=== PATIENT | female | born 1990 | race African-American/Black ===

== ENCOUNTER 2016-08-26 10:32 | Outpatient (CLI) | payer MEDICAID ==
[2016-08-26 11:26] LABS: APPEARANCE,URINE SLIGHTLY-CLOUDY; BILIRUBIN,URINE NEGATIVE (NEGATIVE); GLUCOSE, URINE NEGATIVE (NEGATIVE); KETONES,URINE NEGATIVE (NEGATIVE); LEUKOCYTE ESTERASE,URINE NEGATIVE (NEGATIVE); NITRITE,URINE NEGATIVE (NEGATIVE); PROTEIN,URINE NEGATIVE (NEGATIVE); URINE SPECIFIC GRAVITY 1.013; UROBILINOGEN,URINE NEGATIVE mg/dL (<2.0)
[2016-08-26 11:36] LABS: URINE BARBITURATES SCREEN NEGATIVE; URINE METHADONE SCREEN NEGATIVE; URINE OPIATES LOW NEGATIVE; URINE PHENCYCLIDINE SCREEN NEGATIVE
--- NOTE | 2016-08-26 14:23 | Non Stress Test Report ---
Non Stress Test Datetime Report Generated by CPN: 08/26/2016 14:23 DEMOGRAPHIC EGA NST: 33.3 INDICATION Indication for Study: Other Indication for Study (NST) Other: Labor Check MONITORING Monitor Explained: Monitor Explained; Test Explained; Patient Verbalized Understanding Time on Monitor: 08/26/2016 10:54 Time off Monitor: 08/26/2016 13:10 NST Duration: 136 NST INTERVENTIONS NST Interventions: PO Hydration; Reposition Patient; For Biophysical Profile Physician Notified NST: DrDorene Bg BABY A: [id number] BABY A Movement : Present Contraction Frequency : 0 FHR Baseline : 130 Accelerations : 10X10 Variability : Moderate 6-25bpm NST Review: Questionable if Meets Criteria for Reactive NST NST Review and Verified By : HELENA Escalante Results: Questionable NST REPORT Report Trigger: Send Report
== END 2016-08-26 14:20 | disposition home or self-care (01) ==
LOC: LC 10:32
PROVIDERS: ATTEND Obstetrics & Gynecology
PROC: 4A1HXCZ Monitoring of Products of Conception, Cardiac Rate, External Approach (ICD-10-PCS; principal; 2016-08-26)
DX: Z34.93 Encounter for supervision of normal pregnancy, unspecified, third trimester (principal); Z36 Encounter for antenatal screening of mother; Z3A.33 33 weeks gestation of pregnancy; Z91.81 History of falling
CPT/HCPCS: 59025; 76819; 80307; 81005

== ENCOUNTER 2016-09-16 10:30 | Outpatient (CLI) | payer MEDICAID ==
[2016-09-16 11:11] LABS: APPEARANCE,URINE CLEAR; BILIRUBIN,URINE NEGATIVE (NEGATIVE); GLUCOSE, URINE NEGATIVE (NEGATIVE); KETONES,URINE NEGATIVE (NEGATIVE); LEUKOCYTE ESTERASE,URINE NEGATIVE (NEGATIVE); NITRITE,URINE NEGATIVE (NEGATIVE); PROTEIN,URINE NEGATIVE (NEGATIVE); URINE SPECIFIC GRAVITY 1.009; UROBILINOGEN,URINE NEGATIVE mg/dL (<2.0)
[2016-09-16 11:49] LABS: URINE BARBITURATES SCREEN NEGATIVE; URINE METHADONE SCREEN NEGATIVE; URINE OPIATES LOW NEGATIVE; URINE PHENCYCLIDINE SCREEN NEGATIVE
[2016-09-16 12:30] LABS: ABSOLUTE EOSINOPHILS # (AUTO) 0.1 10^3/uL (0.0-0.6); ABSOLUTE LYMPHOCYTES (AUTO) 2.3 10^3/uL (0.5-4.7); ABSOLUTE MONOCYTES (AUTO) 0.5 10^3/uL (0.1-1.4); ABSOLUTE NEUT (AUTO) 6.3 10^3/uL (1.7-8.2); BASOPHILS % (AUTO) 0.2 % (0-2); EOSINOPHILS % (AUTO) 0.7 % (0-6); HEMATOCRIT 32.8 % (36.0-47.0); HEMOGLOBIN 10.8 g/dL (12.0-15.5); HGB HCT DIFFERENCE -0.4; LYMPHOCYTES % (AUTO) 25.1 % (13-45); MEAN CORPUSCULAR HEMOGLOBIN 25.3 pg (27.0-33.4); MEAN CORPUSCULAR VOLUME 77 fl (80-97); MONOCYTES % (AUTO) 5.8 % (3-13); RED BLOOD COUNT 4.27 10^6/uL (3.72-5.28); RED CELL DISTRIBUTION WIDTH 14.2 % (11.5-14.0); SEGMENTED NEUTROPHILS % (AUTO) 68.2 % (42-78); WHITE BLOOD COUNT 9.3 10^3/uL (4.0-10.5)
[2016-09-16 12:46] LABS: ALANINE AMINOTRANSFERASE 22 U/L (9-52); ALBUMIN 3.3 g/dL (3.5-5.0); ALKALINE PHOSPHATASE 93 U/L (38-126); AMYLASE 66 U/L (30-110); ASPARTATE AMINO TRANSFERASE 13 U/L (14-36); BILIRUBIN,TOTAL 0.4 mg/dL (0.2-1.3); BLOOD UREA NITROGEN 8 mg/dL (7-20); CARBON DIOXIDE 24 mmol/L (22-30); CHLORIDE 106 mmol/L (98-107); CREATININE RESULT 0.61 mg/dL (0.52-1.25); GLUCOSE 83 mg/dL (75-110); LIPASE 50.1 U/L (23-300); POTASSIUM 3.9 mmol/L (3.6-5.0); TOTAL PROTEIN 6.2 g/dL (6.3-8.2)
[2016-09-16 12:50] LABS: ANION GAP 8 (5-19)
--- NOTE | 2016-09-16 13:47 | Non Stress Test Report ---
Non Stress Test Datetime Report Generated by CPN: 09/16/2016 13:46 DEMOGRAPHIC EGA NST: 36.3 INDICATION Indication for Study: Ordered by Provider MONITORING Monitor Explained: Monitor Explained; Test Explained; Patient Verbalized Understanding Time on Monitor: 09/16/2016 12:40 Time off Monitor: 09/16/2016 13:22 NST Duration: 42 NST INTERVENTIONS NST Interventions: PO Hydration Physician Notified NST: Dr. Baum BABY A: [id number] BABY A Movement : Present Contraction Frequency : Occasional FHR Baseline : 130 Accelerations : 15X15 Decelerations : None Variability : Moderate 6-25bpm NST Review: Meets Criteria for Reactive NST NST Review and Verified By : Juni Madrid RN NST Results: Reactive NST REPORT Report Trigger: Send Report
--- NOTE | 2016-09-16 16:51 | L&D Discharge Summary ---
OB Discharge Summary Datetime Report Generated by CPN: 09/16/2016 16:50 DISCHARGE DIAGNOSIS Diagnosis/Symptoms: False Labor Gestation: 36.2 Number of Babies in Womb: 1 Parity: 2 DIET/ACTIVITY/RESTRICTIONS Diet: Regular Activity: Normal Activity TEACHING/INSTRUCTIONS/REFERRALS Instructions Given To: Patient Instructions Understood: Patient Verbalized Understanding Referrals: None Educational Materials- Other: Kick counts reviewed. Pt instructed to return for worsening pain, N/V, fever. DISCHARGE INFORMATION Discharged AMA: No Discharge Date/Time: 09/16/2016 13:40 Discharged To: Home Discharge Provider Name: Dr. Baum Accompanied By: Mother Discharge Method: Ambulatory Condition: Stable FOLLOW UP INFORMATION Follow Up With: [facility] Follow Up On: As Scheduled Follow Up Phone Number: [facility] -
--- NOTE | 2016-09-20 22:48 | L&D General Admission ---
General Admit Datetime Report Generated by CPN: 09/20/2016 22:45 INFORMATION Patient Age: 25 (08/26/2016 10:32:QS system process) EDC: 10/11/2016 00:00 (08/26/2016 10:36:Mirna Madrid RN) : 5 (08/26/2016 10:36:Mirna Madrid RN) Para: 2 (08/26/2016 10:36:Mirna Madrid RN) Term: 2 (08/26/2016 10:36:Mirna Madrid RN) : 0 (08/26/2016 10:36:Mirna Madrid RN) Spontaneous Abortions: 0 (08/26/2016 10:36:Mirna Madrid RN) Induced Abortions: 0 (08/26/2016 10:36:Mirna Madrid RN) Livin (08/26/2016 10:36:Mirna Madrid RN) Cesareans: 0 (08/26/2016 10:36:Mirna Madrid RN) VBACs: 0 (08/26/2016 10:36:Mirna Madrid RN) Ectopic: 0 (08/26/2016 10:36:Mirna Madrid RN) Multiple Births: 0 (08/26/2016 10:36:Mirna Madrid RN) Baby, Number in Womb: 1 (08/26/2016 10:36:Mirna Madrid RN) CARE Primary Biological Science Technician[facility] (08/26/2016 10:36:Mirna Madrid RN) Adequate Care: Yes (08/26/2016 10:36:Mirna Madrid RN) Height (in): 65 (09/16/2016 11:51:QS system process) ALLERGIES Medication Allergy: No (08/26/2016 10:36:Mirna Madrid RN) Medication Allergies: No Known Allergies (03/07/2015) (08/26/2016 10:32:QS system process) Latex Allergy: No Latex Allergies (08/26/2016 10:36:Mirna Madrid RN) Food Allergies: none (08/26/2016 10:36:Mirna Madrid RN) Environmental Allergies: none (08/26/2016 10:36:Mirna Madrid RN) COMMUNICATION Primary Language: Qatari (08/26/2016 10:36:Mirna Madrid RN) Medical Tx Preferred Language: Qatari (08/26/2016 10:36:Mirna Madrid RN) Communication Barrier(s): None; Language barrier (08/26/2016 10:36:Mirna Madrid RN) DEMOGRAPHICS Address: [address] [place] [id number] (08/26/2016 10:32:QS system process) Zipcode: [address] (08/26/2016 10:32:QS system process) Home (08/26/2016 10:32:QS system process) SSN: [id number] (08/26/2016 10:32:QS system process) Next of Kin Name: TRINA SORTO (08/26/2016 10:32:QS system process) Next of Kin (08/26/2016 10:32:QS system process) Next of Kin Relationship: FA (08/26/2016 10:32:QS system process) Date of : 1990 (08/26/2016 10:32:QS system process) Marital Status: (08/26/2016 10:32:QS system process) Sex: Female (08/26/2016 10:32:QS system process) Race: (08/26/2016 10:32:QS system process) Ethnicity: Non- or (08/26/2016 10:32:QS system process) Church: Sabianism (08/26/2016 10:32:QS system process) DRUG AND ALCOHOL USE Alcohol: No (08/26/2016 10:36:Mirna Madrid RN) Cigarettes: Never Smoker. [id number] (08/26/2016 10:36:Mirna Madrid RN) Marijuana: No (08/26/2016 10:36:Mirna Madrid RN) Cocaine: No (08/26/2016 10:36:Mirna Madrid RN) Other Illicit Drugs: No (08/26/2016 10:36:Mirna Madrid RN) VACCINE HISTORY Influenza Vaccine: Yes (08/26/2016 10:36:Milagros Lynch RN) Tetanus Vaccine: No (08/26/2016 10:36:Milagros Lynch RN) Tdap Vaccine: No (08/26/2016 10:36:Milagros Lynch RN) Vp Ancillary: [facility] (08/26/2016 10:36:Milagros Lynch RN) Feeding Preference: Breast (08/26/2016 10:36:Milagros Lynch RN) Benefit of Breast Feed Discussed: Yes (08/26/2016 10:36:Milagros Lynch RN) Circumcision: N/A (08/26/2016 10:36:Milagros Lynch RN) Classes Attended: No (08/26/2016 10:36:Milagros Lynch RN) Tubal Ligation: Yes (08/26/2016 10:36:Milagros Lynch RN) Consent: N/A (08/26/2016 10:36:Milagros Lynch RN) Pain Management Plans: Natural (08/26/2016 10:36:Milagros Lynch RN) Plans for Labor and Delivery: None (08/26/2016 10:36:Milagros Lynch RN) Support Person: Nahid Dolan (08/26/2016 10:36:Milagros Lynch RN) Support Person Relationship: (08/26/2016 10:36:Milagros Lynch RN) Cultural/Spritual Practice: No (08/26/2016 10:36:Milagros Lynch RN) Spir/Cult Dietary Needs: No (08/26/2016 10:36:Milagros Lynch RN) LIVING SITUATION/DISCHARGE PLAN Living Arrangements: House (08/26/2016 10:36:Milagros Lynch RN) Adequate Access to:: Electric; Heat; Refrigeration; Plumbing/Running water; Phone; Transportation (08/26/2016 10:36:Milagros Lynch RN) WIC Program: No (08/26/2016 10:36:Milagros Lynch RN) Discharge Supervisor [place] Person: Nahid Dolan (08/26/2016 10:36:Milagros Lynch RN) Person to Help after Discharge: Nahid Dolan (08/26/2016 10:36:Milagros Lynch RN) Currently Using Commun Resources: Yes (08/26/2016 10:36:Milagros Lynch RN) Specify Current Resource Used: Medicaid (08/26/2016 10:36:Milagros Lynch RN) Outside Agency/Ticket Writer: N/A (08/26/2016 10:36:Milagros Lynch RN) Car Seat for Discharge: Yes (08/26/2016 10:36:Milagros Lynch RN) Adoption Requested: No (08/26/2016 10:36:Milagros Lynch RN) LABS Hemoglobin: 10.8 L (09/16/2016 12:05:QS system process) Hematocrit: 32.8 L (09/16/2016 12:05:QS system process) MCV: 77 L (09/16/2016 12:05:QS system process) OB/PREVIOUS HISTORY History of Previous : No (08/26/2016 10:36:Mirna Madrid RN) History of Gestational Diabetes: No (08/26/2016 10:36:Mirna Madrid RN) History of PIH: No (08/26/2016 10:36:Mirna Madrid RN) History of Incompetent Cervix: No (08/26/2016 10:36:Mirna Madrid RN) History of Placenta Previa/Abrup: No (08/26/2016 10:36:Mirna Madrid RN) History of Macrosomia: No (08/26/2016 10:36:Mirna Madrid RN) History of IUGR: No (08/26/2016 10:36:Mirna Madrid RN) History of Hemorrhage: No (08/26/2016 10:36:Mirna Madrid RN) History of Loss/Stillborn: No (08/26/2016 10:36:Mirna Madrid RN) History of : No (08/26/2016 10:36:Mirna Madrid RN) History of D (Rh) Sensitization: No (08/26/2016 10:36:Mirna Madrid RN) History Recurrent Loss/Stillborn: No (08/26/2016 10:36:Mrina Madrid RN) History Depression/PP Depression: No (08/26/2016 10:36:Mirna Madrid RN) History of Uterine Anomaly/MISHEL: No (08/26/2016 10:36:Mirna Madrid RN) History of Infertility: No (08/26/2016 10:36:Mirna Madrid RN) History of ART Treatment: No (08/26/2016 10:36:Mirna Madrid RN) History of MISHEL: No (08/26/2016 10:36:Mirna Madrid RN) Comments Obstetrical History: G1- Preeclampsia. full term female. G3- Misscarriage at 9 weeks. G4- full term male G5- Current . (08/26/2016 10:36:Milagros Lynch RN) MEDICAL HISTORY Med Hx Diabetes: No (08/26/2016 10:36:Mirna Madrid RN) Med Hx Hypertension: No (08/26/2016 10:36:Mirna Madrid RN) Med Hx Heart Disease: No (08/26/2016 10:36:Mirna Madrid RN) Med Hx Autoimmune Disorder: No (08/26/2016 10:36:Mirna Madrid RN) Med Hx Kidney Disease/UTI: No (08/26/2016 10:36:Mirna Madrid RN) Med Hx Neurologic/Epilepsy: No (08/26/2016 10:36:Mirna Madrid RN) Med Hx Psychiatric Disorders: No (08/26/2016 10:36:Mirna Madrid RN) Med Hx Hepatitis/Liver Disease: No (08/26/2016 10:36:Mirna Madrid RN) Med Hx Varicosities/Phlebitis: No (08/26/2016 10:36:Mirna Madrid RN) Med Hx Thyroid Dysfunction: No (08/26/2016 10:36:Mirna Madrid RN) Med Hx Trauma/Violence: No (08/26/2016 10:36:Mirna Madrid RN) Med Hx Blood Transfusion: No (08/26/2016 10:36:Mirna Madrid RN) Med Hx Pulmonary (Asthma,TB): No (08/26/2016 10:36:Mirna Madrid RN) Med Hx Breast: No (08/26/2016 10:36:Mirna Madrid RN) Med Hx PROGRAMMING DEVELOPMENT PROJECT MANAGER Surgery: No (08/26/2016 10:36:Mirna Madrid RN) Med Hx Hospitalization/Surgery: Yes (08/26/2016 10:36:Milagros Lynch RN) Med Hx Anesthetic Complications: No (08/26/2016 10:36:Mirna Madrid RN) Med Hx Abnormal Pap Smear: No (08/26/2016 10:36:Mirna Madrid RN) Other Medical Diseases: No (08/26/2016 10:36:Mirna Madrid RN) Med Hx Significant Family Hx: No (08/26/2016 10:36:Mirna Madrid RN) Details of Med/Surg Hx: Preeclampsia during first (08/26/2016 10:36:Milagros Lynch RN) INFECTIOUS HISTORY Inf Hx Gonorrhea: No (08/26/2016 10:36:Mirna Madrid RN) Inf Hx Chlamydia: No (08/26/2016 10:36:Mirna Madrid RN) Inf Hx Syphilis: No (08/26/2016 10:36:Mirna Madrid RN) Inf Hx HIV/AIDS: No (08/26/2016 10:36:Mirna Madrid RN) Inf Hx Human Papilloma Virus: No (08/26/2016 10:36:Mirna Madrid RN) Inf Hx Pt/Partner Genital Herpes: No (08/26/2016 10:36:Mirna Madrid RN) Inf Hx Tuberculosis/Exposure: No (08/26/2016 10:36:Mirna Madrid RN) Inf Hx Hepatitis B,C: No (08/26/2016 10:36:Mirna Madrid RN) Inf Hx Rash or Viral Illness: No (08/26/2016 10:36:Mirna Madrid RN) GENETIC HISTORY Gen Hx Age >=35 at AN[place]EL[place]: No (08/26/2016 10:36:Mirna Madrid RN) Gen Hx Thalassemia: No (08/26/2016 10:36:Mirna Madrid RN) Gen Hx Congenital Heart Defect: No (08/26/2016 10:36:Mirna Madrid RN) Gen Hx Neural Tube Defect: No (08/26/2016 10:36:Mirna Madrid RN) Gen Hx Down's Syndrome: No (08/26/2016 10:36:Mirna Madrid RN) Gen Hx Wild-Sachs: No (08/26/2016 10:36:Mirna Madrid RN) Gen Hx Jose L: No (08/26/2016 10:36:Mirna Madrid RN) Gen Hx Familial Dysautonomia: No (08/26/2016 10:36:Mirna Madrid RN) Gen Hx Sickle Cell Disease/Trait: No (08/26/2016 10:36:Mirna Madrid RN) Gen Hx Hemophilia/Blood Disorder: No (08/26/2016 10:36:Mirna Madrid RN) Gen Hx Muscular Dystrophy: No (08/26/2016 10:36:Mirna Madrid RN) Gen Hx Cystic Fibrosis: No (08/26/2016 10:36:Mirna Madrid RN) Gen Hx Huntingtons Chorea: No (08/26/2016 10:36:Mirna Madrid RN) Gen Hx Mental Retardation/Autism: No (08/26/2016 10:36:Mirna Madrid RN) Gen Hx Tested for Fragile X: No (08/26/2016 10:36:Mirna Madrid RN) Gen Hx Other Inher/Chromosomal: No (08/26/2016 10:36:Mirna Madrid RN) Gen Hx Maternal Metabolic DO: No (08/26/2016 10:36:Mirna Madrid RN) Gen Hx Pt Father or FOB Defect: No (08/26/2016 10:36:Mirna Madrid RN) Gen Hx Other Genetic History: No (08/26/2016 10:36:Mirna Madrid RN) Gen Hx Drugs/Meds since LMP: No (08/26/2016 10:36:Mirna Madrid RN)
--- NOTE | 2016-09-20 22:48 | L&D Current Admission ---
Current Admit Datetime Report Generated by CPN: 09/20/2016 22:45 ADMISSION INFORMATION Current Admit Date/Time: 09/16/2016 10:36 (08/26/2016 10:59:Milagros Lynch RN) Reason for Admission: Labor Check/Investigation of Chief Complaint (08/26/2016 10:59:Milagros Lynch RN) Chief Complaint: Contractions (09/16/2016 11:05:Milagros Lynch RN) Chief Complaint: Contractions (08/26/2016 10:59:Milagros Lynch RN) Medications During : Vitamin (08/26/2016 10:59:Milagros Lynch RN) EGA per Dates: 36.3 (08/26/2016 10:59:QS system process) Method of Arrival: Wheelchair (08/26/2016 10:59:Milagros Lynch RN) Admitted From: Home (08/26/2016 10:59:Milagros Lynch RN) Records Available: Yes (08/26/2016 10:59:Milagros Lynch RN) General Admission Information: Reviewed (08/26/2016 10:59:Milagros Lynch RN) General Admission Reviewed By: Leandra Lynch (08/26/2016 10:59:Milagros Lynch RN) BELONGINGS/ADVANCED DIRECTIVES Valuables/Personal Effects: Purse/Wallet; Cell Phone (08/26/2016 10:59:Milagros Lynch RN) Disposition of Belongings: Kept with Patient (08/26/2016 10:59:Milagros Lynch RN) Advance Direct for Healthcare: No, but Requests Information (08/26/2016 10:59:Milagros Lynch RN) Durable Power of Furniture Rental Consultant: No (08/26/2016 10:59:Milagros Lynch RN) Living Will: No (08/26/2016 10:59:Milagros Lynch RN) Organ Donor: No (08/26/2016 10:59:Milagros Lynch RN) Pt Rights Information Given: Yes (08/26/2016 10:59:Milagros Lynch RN) LEARNING ASSESSMENT Knowledge Level: Understands L_D Process (08/26/2016 10:59:Milagros Lynch RN) Barriers to Learning: None (08/26/2016 10:59:Milagros Lynch RN) Learning Readiness: Motivated (08/26/2016 10:59:Milagros Lynch RN) Learns Best By: 1 to 1 Instruction; Reading; Videos; Demonstration (08/26/2016 10:59:Milagros Lynch RN) Learning Needs: Labor and Delivery Process; Pain Management; Symptoms to Report; Medication (08/26/2016 10:59:Milagros Lynch RN) DOMESTIC VIOLANCE SCREENING Dom Viol Threatened/Hurt: No (08/26/2016 10:59:Milagros Lynch RN) Hx of Abuse/Neglect past 2yrs: No (08/26/2016 10:59:Milagros Lynch RN) Feel Unsafe Going Home: No (08/26/2016 10:59:Milagros Lynch RN) Addt'l Observ Indicating Abuse: No (08/26/2016 10:59:Milagros Lynch RN) Considered Personal Harm/Suicide: No (08/26/2016 10:59:Milagros Lynch RN) NUTRITIONAL/FUNCTIONAL SCREENING Problem with Appetite >5 Days: No (08/26/2016 10:59:Milagros Lynch RN) Chew/Swallow Difficulties: No (08/26/2016 10:59:Mliagros Lynch RN) Inappropriate Wt Gain/Loss: No (08/26/2016 10:59:Milagros Lynch RN) Presence Skin Breakdown/Ulcer: No (08/26/2016 10:59:Milagros Lynch RN) Special Diet: No (08/26/2016 10:59:Milagros Lynch RN) Hx of Any of the Following?: N/A (08/26/2016 10:59:Milagros Lynch RN) New Diagnosis of: N/A (08/26/2016 10:59:Milagros Lynch RN) Requires Assist w/Ambulation: No (08/26/2016 10:59:Milagros Lynch RN) Uses Assist Device to Ambulate: No (08/26/2016 10:59:Milagros Lynch RN) Pt Requires Help w/ADL's: No (08/26/2016 10:59:Milagros Lynch RN)
--- NOTE | 2016-09-20 22:49 | L&D Discharge Summary ---
OB Discharge Summary Datetime Report Generated by CPN: 09/20/2016 22:45 DISCHARGE DIAGNOSIS Diagnosis/Symptoms: False Labor Gestation: 36.3 Number of Babies in Womb: 1 Parity: 2 DIET/ACTIVITY/RESTRICTIONS Diet: Regular Activity: Normal Activity TEACHING/INSTRUCTIONS/REFERRALS Instructions Given To: Patient Instructions Understood: Patient Verbalized Understanding Referrals: None Educational Materials- Other: Kick counts reviewed. Pt instructed to return for worsening pain, N/V, fever. DISCHARGE INFORMATION Discharged AMA: No Discharge Date/Time: 09/16/2016 13:40 Discharged To: Home Discharge Provider Name: Dr. Baum Accompanied By: Mother Discharge Method: Ambulatory Condition: Stable FOLLOW UP INFORMATION Follow Up With: [facility] Follow Up On: As Scheduled Follow Up Phone Number: [facility] -
--- NOTE | 2016-09-21 04:48 | L&D Discharge Summary ---
OB Discharge Summary Datetime Report Generated by CPN: 09/21/2016 04:46 DISCHARGE DIAGNOSIS Diagnosis/Symptoms: False Labor Gestation: 36.3 Number of Babies in Womb: 1 Parity: 2 DIET/ACTIVITY/RESTRICTIONS Diet: Regular Activity: Normal Activity TEACHING/INSTRUCTIONS/REFERRALS Instructions Given To: Patient Instructions Understood: Patient Verbalized Understanding Referrals: None Educational Materials- Other: Kick counts reviewed. Pt instructed to return for worsening pain, N/V, fever. DISCHARGE INFORMATION Discharged AMA: No Discharge Date/Time: 09/16/2016 13:40 Discharged To: Home Discharge Provider Name: Dr. Baum Accompanied By: Mother Discharge Method: Ambulatory Condition: Stable FOLLOW UP INFORMATION Follow Up With: [facility] Follow Up On: As Scheduled Follow Up Phone Number: [facility] -
--- NOTE | 2016-09-21 04:48 | L&D General Admission ---
General Admit Datetime Report Generated by CPN: 09/21/2016 04:46 INFORMATION Patient Age: 25 (08/26/2016 10:32:QS system process) EDC: 10/11/2016 00:00 (08/26/2016 10:36:Mirna Madrid RN) : 5 (08/26/2016 10:36:Mirna Madrid RN) Para: 2 (08/26/2016 10:36:Mirna Madrid RN) Term: 2 (08/26/2016 10:36:Mirna Madrid RN) : 0 (08/26/2016 10:36:Mirna Madrid RN) Spontaneous Abortions: 0 (08/26/2016 10:36:Mirna Madrid RN) Induced Abortions: 0 (08/26/2016 10:36:Mirna Madrid RN) Livin (08/26/2016 10:36:Mirna Madrid RN) Cesareans: 0 (08/26/2016 10:36:Mirna Madrid RN) VBACs: 0 (08/26/2016 10:36:Mirna Madrid RN) Ectopic: 0 (08/26/2016 10:36:Mirna Madrid RN) Multiple Births: 0 (08/26/2016 10:36:Mirna Madrid RN) Baby, Number in Womb: 1 (08/26/2016 10:36:Mirna Madrid RN) CARE Primary Hand Compositor: [facility] (08/26/2016 10:36:Mirna Madrid RN) Adequate Care: Yes (08/26/2016 10:36:Mirna Madrid RN) Height (in): 65 (09/16/2016 11:51:QS system process) ALLERGIES Medication Allergy: No (08/26/2016 10:36:Mirna Madrid RN) Medication Allergies: No Known Allergies (03/07/2015) (08/26/2016 10:32:QS system process) Latex Allergy: No Latex Allergies (08/26/2016 10:36:Mirna Madrid RN) Food Allergies: none (08/26/2016 10:36:Mirna Madrid RN) Environmental Allergies: none (08/26/2016 10:36:Mirna Madrid RN) COMMUNICATION Primary Language: Syrian (08/26/2016 10:36:Mirna Madrid RN) Medical Tx Preferred Language: Syrian (08/26/2016 10:36:Mirna Madrid RN) Communication Barrier(s): None; Language barrier (08/26/2016 10:36:Mirna Madrid RN) DEMOGRAPHICS Address: [address] [place] [id number] (08/26/2016 10:32:QS system process) Zipcode: [address] (08/26/2016 10:32:QS system process) Home (08/26/2016 10:32:QS system process) SSN: [id number] (08/26/2016 10:32:QS system process) Next of Kin Name: TRINA SORTO (08/26/2016 10:32:QS system process) Next of Kin (08/26/2016 10:32:QS system process) Next of Kin Relationship: FA (08/26/2016 10:32:QS system process) Date of : 1990 (08/26/2016 10:32:QS system process) Marital Status: (08/26/2016 10:32:QS system process) Sex: Female (08/26/2016 10:32:QS system process) Race: (08/26/2016 10:32:QS system process) Ethnicity: Non- or (08/26/2016 10:32:QS system process) Druze: Yarsani (08/26/2016 10:32:QS system process) DRUG AND ALCOHOL USE Alcohol: No (08/26/2016 10:36:Mirna Madrid RN) Cigarettes: Never Smoker. [id number] (08/26/2016 10:36:Mirna Madrid RN) Marijuana: No (08/26/2016 10:36:Mirna Madrid RN) Cocaine: No (08/26/2016 10:36:Mirna Madrid RN) Other Illicit Drugs: No (08/26/2016 10:36:Mirna Madrid RN) VACCINE HISTORY Influenza Vaccine: Yes (08/26/2016 10:36:Milagros Lynch RN) Tetanus Vaccine: No (08/26/2016 10:36:Milagros Lynch RN) Tdap Vaccine: No (08/26/2016 10:36:Milagros Lynch RN) Drawer Maker: [facility] (08/26/2016 10:36:Milagros Lynch RN) Feeding Preference: Breast (08/26/2016 10:36:Milgaros Lynch RN) Benefit of Breast Feed Discussed: Yes (08/26/2016 10:36:Milagros Lynch RN) Circumcision: N/A (08/26/2016 10:36:Milagros Lynch RN) Classes Attended: No (08/26/2016 10:36:Milagros Lynch RN) Tubal Ligation: Yes (08/26/2016 10:36:Milagros Lynch RN) Consent: N/A (08/26/2016 10:36:Milagros Lynch RN) Pain Management Plans: Natural (08/26/2016 10:36:Milagros Lynch RN) Plans for Labor and Delivery: None (08/26/2016 10:36:Milagros Lynch RN) Support Person: Nahid Dolan (08/26/2016 10:36:Milagros Lynch RN) Support Person Relationship: (08/26/2016 10:36:Milagros Lynch RN) Cultural/Spritual Practice: No (08/26/2016 10:36:Milagros Lynch RN) Spir/Cult Dietary Needs: No (08/26/2016 10:36:Milagros Lynch RN) LIVING SITUATION/DISCHARGE PLAN Living Arrangements: House (08/26/2016 10:36:Milagros Lynch RN) Adequate Access to:: Electric; Heat; Refrigeration; Plumbing/Running water; Phone; Transportation (08/26/2016 10:36:Milagros Lynch RN) WIC Program: No (08/26/2016 10:36:Milagros Lynch RN) Discharge Lastex Operator Person: Nahid Dolan (08/26/2016 10:36:Milagros Lynch RN) Person to Help after Discharge: Nahid Dolan (08/26/2016 10:36:Milagros Lynch RN) Currently Using Commun Resources: Yes (08/26/2016 10:36:Milagros Lynch RN) Specify Current Resource Used: Medicaid (08/26/2016 10:36:Milagros Lynch RN) Outside Agency/Hollow Ware Maker: N/A (08/26/2016 10:36:Milagros Lynch RN) Car Seat for Discharge: Yes (08/26/2016 10:36:Milagros Lynch RN) Adoption Requested: No (08/26/2016 10:36:Milagros Lynch RN) LABS Hemoglobin: 10.8 L (09/16/2016 12:05:QS system process) Hematocrit: 32.8 L (09/16/2016 12:05:QS system process) MCV: 77 L (09/16/2016 12:05:QS system process) OB/PREVIOUS HISTORY History of Previous : No (08/26/2016 10:36:Mirna Madrid RN) History of Gestational Diabetes: No (08/26/2016 10:36:Mirna Madrid RN) History of PIH: No (08/26/2016 10:36:Mirna Madrid RN) History of Incompetent Cervix: No (08/26/2016 10:36:Mirna Madrid RN) History of Placenta Previa/Abrup: No (08/26/2016 10:36:Mirna Madrid RN) History of Macrosomia: No (08/26/2016 10:36:Mirna Madrid RN) History of IUGR: No (08/26/2016 10:36:Mirna Madrid RN) History of Hemorrhage: No (08/26/2016 10:36:Mirna Madrid RN) History of Loss/Stillborn: No (08/26/2016 10:36:Mirna Madrid RN) History of : No (08/26/2016 10:36:Mirna Madrid RN) History of D (Rh) Sensitization: No (08/26/2016 10:36:Mirna Madrid RN) History Recurrent Loss/Stillborn: No (08/26/2016 10:36:Mirna Madrid RN) History Depression/PP Depression: No (08/26/2016 10:36:Mirna Madrid RN) History of Uterine Anomaly/MISHEL: No (08/26/2016 10:36:Mirna Madrid RN) History of Infertility: No (08/26/2016 10:36:Mirna Madrid RN) History of ART Treatment: No (08/26/2016 10:36:Mirna Madrid RN) History of MISHEL: No (08/26/2016 10:36:Mirna Madrid RN) Comments Obstetrical History: G1- Preeclampsia. full term female. G3- Misscarriage at 9 weeks. G4- full term male G5- Current . (08/26/2016 10:36:Milagros Lynch RN) MEDICAL HISTORY Med Hx Diabetes: No (08/26/2016 10:36:Mirna Madrid RN) Med Hx Hypertension: No (08/26/2016 10:36:Mirna Madrid RN) Med Hx Heart Disease: No (08/26/2016 10:36:Mirna Madrid RN) Med Hx Autoimmune Disorder: No (08/26/2016 10:36:Mirna Madrid RN) Med Hx Kidney Disease/UTI: No (08/26/2016 10:36:Mirna Madrid RN) Med Hx Neurologic/Epilepsy: No (08/26/2016 10:36:Mirna Madrid RN) Med Hx Psychiatric Disorders: No (08/26/2016 10:36:Mirna Madrid RN) Med Hx Hepatitis/Liver Disease: No (08/26/2016 10:36:Mirna Madrid RN) Med Hx Varicosities/Phlebitis: No (08/26/2016 10:36:Mirna Madrid RN) Med Hx Thyroid Dysfunction: No (08/26/2016 10:36:Mirna Madrid RN) Med Hx Trauma/Violence: No (08/26/2016 10:36:Mirna Madrid RN) Med Hx Blood Transfusion: No (08/26/2016 10:36:Mirna Madrid RN) Med Hx Pulmonary (Asthma,TB): No (08/26/2016 10:36:Mirna Madrid RN) Med Hx Breast: No (08/26/2016 10:36:Mirna Madrid RN) Med Hx DIGITAL PRINTER OPERATOR Surgery: No (08/26/2016 10:36:Mirna Madrid RN) Med Hx Hospitalization/Surgery: Yes (08/26/2016 10:36:Milagros Lynch RN) Med Hx Anesthetic Complications: No (08/26/2016 10:36:Mirna Madrid RN) Med Hx Abnormal Pap Smear: No (08/26/2016 10:36:Mirna Madrid RN) Other Medical Diseases: No (08/26/2016 10:36:Mirna Madrid RN) Med Hx Significant Family Hx: No (08/26/2016 10:36:Mirna Madrid RN) Details of Med/Surg Hx: Preeclampsia during first (08/26/2016 10:36:Milagros Lynch RN) INFECTIOUS HISTORY Inf Hx Gonorrhea: No (08/26/2016 10:36:Mirna Madrid RN) Inf Hx Chlamydia: No (08/26/2016 10:36:Mirna Madrid RN) Inf Hx Syphilis: No (08/26/2016 10:36:Mirna Madrid RN) Inf Hx HIV/AIDS: No (08/26/2016 10:36:Mirna Madrid RN) Inf Hx Human Papilloma Virus: No (08/26/2016 10:36:Mirna Madrid RN) Inf Hx Pt/Partner Genital Herpes: No (08/26/2016 10:36:Mirna Madrid RN) Inf Hx Tuberculosis/Exposure: No (08/26/2016 10:36:Mirna Madrid RN) Inf Hx Hepatitis B,C: No (08/26/2016 10:36:Mirna Madrid RN) Inf Hx Rash or Viral Illness: No (08/26/2016 10:36:Mirna Madrid RN) GENETIC HISTORY Gen Hx Age >=35 at ANNABELLE: No (08/26/2016 10:36:Mirna Madrid RN) Gen Hx Thalassemia: No (08/26/2016 10:36:Mirna Madrid RN) Gen Hx Congenital Heart Defect: No (08/26/2016 10:36:Mirna Madrid RN) Gen Hx Neural Tube Defect: No (08/26/2016 10:36:Mirna Madrid RN) Gen Hx Down's Syndrome: No (08/26/2016 10:36:Mirna Madrid RN) Gen Hx Wild-Sachs: No (08/26/2016 10:36:Mirna Madrid RN) Gen Hx Jose L: No (08/26/2016 10:36:Mirna Madrid RN) Gen Hx Familial Dysautonomia: No (08/26/2016 10:36:Mirna Madrid RN) Gen Hx Sickle Cell Disease/Trait: No (08/26/2016 10:36:Mirna Madrid RN) Gen Hx Hemophilia/Blood Disorder: No (08/26/2016 10:36:Mirna Madrid RN) Gen Hx Muscular Dystrophy: No (08/26/2016 10:36:Mirna Madrid RN) Gen Hx Cystic Fibrosis: No (08/26/2016 10:36:Mirna Madrid RN) Gen Hx [place] Chorea: No (08/26/2016 10:36:Mirna Madrid RN) Gen Hx Mental Retardation/Autism: No (08/26/2016 10:36:Mirna Madrid RN) Gen Hx Tested for Fragile X: No (08/26/2016 10:36:Mirna Madrid RN) Gen Hx Other Inher/Chromosomal: No (08/26/2016 10:36:Mirna Madrid RN) Gen Hx Maternal Metabolic DO: No (08/26/2016 10:36:Mirna Madrid RN) Gen Hx Pt Father or FOB Defect: No (08/26/2016 10:36:Mirna Madrid RN) Gen Hx Other Genetic History: No (08/26/2016 10:36:Mirna Madrid RN) Gen Hx Drugs/Meds since LMP: No (08/26/2016 10:36:Mirna Madrid RN)
--- NOTE | 2016-09-21 04:48 | L&D Current Admission ---
Current Admit Datetime Report Generated by CPN: 09/21/2016 04:46 ADMISSION INFORMATION Current Admit Date/Time: 09/16/2016 10:36 (08/26/2016 10:59:Milagros Lynch RN) Reason for Admission: Labor Check/Investigation of Chief Complaint (08/26/2016 10:59:Milagros Lynch RN) Chief Complaint: Contractions (09/16/2016 11:05:Milagros Lynch RN) Chief Complaint: Contractions (08/26/2016 10:59:Milagros Lynch RN) Medications During : Vitamin (08/26/2016 10:59:Milagros Lynch RN) EGA per Dates: 36.3 (08/26/2016 10:59:QS system process) Method of Arrival: Wheelchair (08/26/2016 10:59:Milagros Lynch RN) Admitted From: Home (08/26/2016 10:59:Milagros Lynch RN) Records Available: Yes (08/26/2016 10:59:Milagros Lynch RN) General Admission Information: Reviewed (08/26/2016 10:59:Milagros Lynch RN) General Admission Reviewed By: Leandra Lynch (08/26/2016 10:59:Milagros Lynch RN) BELONGINGS/ADVANCED DIRECTIVES Valuables/Personal Effects: Purse/Wallet; Cell Phone (08/26/2016 10:59:Milagros Lynch RN) Disposition of Belongings: Kept with Patient (08/26/2016 10:59:Milagros Lynch RN) Advance Direct for Healthcare: No, but Requests Information (08/26/2016 10:59:Milagros Lynch RN) Durable Power of Emergency Communications Dispatcher: No (08/26/2016 10:59:Milagros Lynch RN) Living Will: No (08/26/2016 10:59:Milagros Lynch RN) Organ Donor: No (08/26/2016 10:59:Milagros Lynch RN) Pt Rights Information Given: Yes (08/26/2016 10:59:Milagros Lynch RN) LEARNING ASSESSMENT Knowledge Level: Understands L_D Process (08/26/2016 10:59:Milagros Lynch RN) Barriers to Learning: None (08/26/2016 10:59:Milagros Lynch RN) Learning Readiness: Motivated (08/26/2016 10:59:Milagros Lynch RN) Learns Best By: 1 to 1 Instruction; Reading; Videos; Demonstration (08/26/2016 10:59:Milagros Lynch RN) Learning Needs: Labor and Delivery Process; Pain Management; Symptoms to Report; Medication (08/26/2016 10:59:Milagros Lynhc RN) DOMESTIC VIOLANCE SCREENING Dom Viol Threatened/Hurt: No (08/26/2016 10:59:Milagros Lynch RN) Hx of Abuse/Neglect past 2yrs: No (08/26/2016 10:59:Milagros Lynch RN) Feel Unsafe Going Home: No (08/26/2016 10:59:Milagros Lynch RN) Addt'l Observ Indicating Abuse: No (08/26/2016 10:59:Milagros Lynch RN) Considered Personal Harm/Suicide: No (08/26/2016 10:59:Milagros Lynch RN) NUTRITIONAL/FUNCTIONAL SCREENING Problem with Appetite >5 Days: No (08/26/2016 10:59:Milagros Lynch RN) Chew/Swallow Difficulties: No (08/26/2016 10:59:Milagros Lynch RN) Inappropriate Wt Gain/Loss: No (08/26/2016 10:59:Milagros Lynch RN) Presence Skin Breakdown/Ulcer: No (08/26/2016 10:59:Milagros Lynch RN) Special Diet: No (08/26/2016 10:59:Milagros Lynch RN) Hx of Any of the Following?: N/A (08/26/2016 10:59:Milagros Lynch RN) New Diagnosis of: N/A (08/26/2016 10:59:Milagros Lynch RN) Requires Assist w/Ambulation: No (08/26/2016 10:59:Milagros Lynch RN) Uses Assist Device to Ambulate: No (08/26/2016 10:59:Milagros Lynch RN) Pt Requires Help w/ADL's: No (08/26/2016 10:59:Milagros Lynch RN)
--- NOTE | 2016-09-21 10:48 | L&D General Admission ---
General Admit Datetime Report Generated by CPN: 09/21/2016 10:45 INFORMATION Patient Age: 25 (08/26/2016 10:32:QS system process) EDC: 10/11/2016 00:00 (08/26/2016 10:36:Mirna Madrid RN) : 5 (08/26/2016 10:36:Mirna Madrid RN) Para: 2 (08/26/2016 10:36:Mirna Madrid RN) Term: 2 (08/26/2016 10:36:Mirna Madrid RN) : 0 (08/26/2016 10:36:Mirna Madrid RN) Spontaneous Abortions: 0 (08/26/2016 10:36:Mirna Madrid RN) Induced Abortions: 0 (08/26/2016 10:36:Mirna Madrid RN) Livin (08/26/2016 10:36:Mirna Madrid RN) Cesareans: 0 (08/26/2016 10:36:Mirna Madrid RN) VBACs: 0 (08/26/2016 10:36:Mirna Madrid RN) Ectopic: 0 (08/26/2016 10:36:Mirna Madrid RN) Multiple Births: 0 (08/26/2016 10:36:Mirna Madrid RN) Baby, Number in Womb: 1 (08/26/2016 10:36:Mirna Madrid RN) CARE Primary Block Setter [place] (08/26/2016 10:36:Mirna Madrid RN) Adequate Care: Yes (08/26/2016 10:36:Mirna Madrid RN) Height (in): 65 (09/16/2016 11:51:QS system process) ALLERGIES Medication Allergy: No (08/26/2016 10:36:Mirna Madrid RN) Medication Allergies: No Known Allergies (03/07/2015) (08/26/2016 10:32:QS system process) Latex Allergy: No Latex Allergies (08/26/2016 10:36:Mirna Madrid RN) Food Allergies: none (08/26/2016 10:36:Mirna Madrid RN) Environmental Allergies: none (08/26/2016 10:36:Mirna Madrid RN) COMMUNICATION Primary Language: Senegalese (08/26/2016 10:36:Mirna Madrid RN) Medical Tx Preferred Language: Senegalese (08/26/2016 10:36:Mirna Madrid RN) Communication Barrier(s): None; Language barrier (08/26/2016 10:36:Mirna Madrid RN) DEMOGRAPHICS Address: [address] [place] [id number] (08/26/2016 10:32:QS system process) Zipcode: [id number] (08/26/2016 10:32:QS system process) Home (08/26/2016 10:32:QS system process) SSN: [id number] (08/26/2016 10:32:QS system process) Next of Kin Name: TRINA SORTO (08/26/2016 10:32:QS system process) Next of Kin (08/26/2016 10:32:QS system process) Next of Kin Relationship: FA (08/26/2016 10:32:QS system process) Date of : 1990 (08/26/2016 10:32:QS system process) Marital Status: (08/26/2016 10:32:QS system process) Sex: Female (08/26/2016 10:32:QS system process) Race: (08/26/2016 10:32:QS system process) Ethnicity: Non- or (08/26/2016 10:32:QS system process) Congregation: Moravian (08/26/2016 10:32:QS system process) DRUG AND ALCOHOL USE Alcohol: No (08/26/2016 10:36:Mirna Madrid RN) Cigarettes: Never Smoker. [id number] (08/26/2016 10:36:Mirna Madrid RN) Marijuana: No (08/26/2016 10:36:Mirna Madrid RN) Cocaine: No (08/26/2016 10:36:Mirna Madrid RN) Other Illicit Drugs: No (08/26/2016 10:36:Mirna Madrid RN) VACCINE HISTORY Influenza Vaccine: Yes (08/26/2016 10:36:Milagros Lynch RN) Tetanus Vaccine: No (08/26/2016 10:36:Milagros Lynch RN) Tdap Vaccine: No (08/26/2016 10:36:Milagros Lynch RN) Student Career Development Specialist: [employer] (08/26/2016 10:36:Milagros Lynch RN) Feeding Preference: Breast (08/26/2016 10:36:Milagros Lynch RN) Benefit of Breast Feed Discussed: Yes (08/26/2016 10:36:Milagros Lynch RN) Circumcision: N/A (08/26/2016 10:36:Milagros Lynch RN) Classes Attended: No (08/26/2016 10:36:Milagros Lynch RN) Tubal Ligation: Yes (08/26/2016 10:36:Milagros Lynch RN) Consent: N/A (08/26/2016 10:36:Milagros Lynch RN) Pain Management Plans: Natural (08/26/2016 10:36:Milagros Lynch RN) Plans for Labor and Delivery: None (08/26/2016 10:36:Milagros Lynch RN) Support Person: Nahid Dolan (08/26/2016 10:36:Milagros Lynch RN) Support Person Relationship: (08/26/2016 10:36:Milagros Lynch RN) Cultural/Spritual Practice: No (08/26/2016 10:36:Milagros Lynch RN) Spir/Cult Dietary Needs: No (08/26/2016 10:36:Milagros Lynch RN) LIVING SITUATION/DISCHARGE PLAN Living Arrangements: House (08/26/2016 10:36:Milagros Lynch RN) Adequate Access to:: Electric; Heat; Refrigeration; Plumbing/Running water; Phone; Transportation (08/26/2016 10:36:Milagros Lynch RN) WIC Program: No (08/26/2016 10:36:Milagros Lynch RN) Discharge Nursing Education Consultant Person: Nahid Dolan (08/26/2016 10:36:Milagros Lynch RN) Person to Help after Discharge: Nahid Dolan (08/26/2016 10:36:Milagros Lynch RN) Currently Using Commun Resources: Yes (08/26/2016 10:36:Milagros Lynch RN) Specify Current Resource Used: Medicaid (08/26/2016 10:36:Milagros Lynch RN) Outside Agency/Asp Developer: N/A (08/26/2016 10:36:Milagros Lynch RN) Car Seat for Discharge: Yes (08/26/2016 10:36:Milagros Lynch RN) Adoption Requested: No (08/26/2016 10:36:Milagros Lynch RN) LABS Hemoglobin: 10.8 L (09/16/2016 12:05:QS system process) Hematocrit: 32.8 L (09/16/2016 12:05:QS system process) MCV: 77 L (09/16/2016 12:05:QS system process) OB/PREVIOUS HISTORY History of Previous : No (08/26/2016 10:36:Mirna Madrid RN) History of Gestational Diabetes: No (08/26/2016 10:36:Mirna Madrid RN) History of PIH: No (08/26/2016 10:36:Mirna Madrid RN) History of Incompetent Cervix: No (08/26/2016 10:36:Mirna Madrid RN) History of Placenta Previa/Abrup: No (08/26/2016 10:36:Mirna Mdarid RN) History of Macrosomia: No (08/26/2016 10:36:Mirna Madrid RN) History of IUGR: No (08/26/2016 10:36:Mirna Madrid RN) History of Hemorrhage: No (08/26/2016 10:36:Mirna Madrid RN) History of Loss/Stillborn: No (08/26/2016 10:36:Mirna Madrid RN) History of : No (08/26/2016 10:36:Mirna Madrid RN) History of D (Rh) Sensitization: No (08/26/2016 10:36:Mirna Madrid RN) History Recurrent Loss/Stillborn: No (08/26/2016 10:36:Mirna Mdarid RN) History Depression/PP Depression: No (08/26/2016 10:36:Mirna Madrid RN) History of Uterine Anomaly/MISHEL: No (08/26/2016 10:36:Mirna Madrid RN) History of Infertility: No (08/26/2016 10:36:Mirna Madrid RN) History of ART Treatment: No (08/26/2016 10:36:Mirna Madrid RN) History of MISHEL: No (08/26/2016 10:36:Mirna Madrid RN) Comments Obstetrical History: G1- Preeclampsia. full term female. G3- Misscarriage at 9 weeks. G4- full term male G5- Current . (08/26/2016 10:36:Milagros Lynch RN) MEDICAL HISTORY Med Hx Diabetes: No (08/26/2016 10:36:Mirna Madrid RN) Med Hx Hypertension: No (08/26/2016 10:36:Mirna Madrid RN) Med Hx Heart Disease: No (08/26/2016 10:36:Mirna Madrid RN) Med Hx Autoimmune Disorder: No (08/26/2016 10:36:Mirna Madrid RN) Med Hx Kidney Disease/UTI: No (08/26/2016 10:36:Mirna Madrid RN) Med Hx Neurologic/Epilepsy: No (08/26/2016 10:36:Mirna Madrid RN) Med Hx Psychiatric Disorders: No (08/26/2016 10:36:Mirna Madrid RN) Med Hx Hepatitis/Liver Disease: No (08/26/2016 10:36:Mirna Madrid RN) Med Hx Varicosities/Phlebitis: No (08/26/2016 10:36:Mirna Madrid RN) Med Hx Thyroid Dysfunction: No (08/26/2016 10:36:Mirna Madrid RN) Med Hx Trauma/Violence: No (08/26/2016 10:36:Mirna Madrid RN) Med Hx Blood Transfusion: No (08/26/2016 10:36:Mirna Madrid RN) Med Hx Pulmonary (Asthma,TB): No (08/26/2016 10:36:Mirna Madrid RN) Med Hx Breast: No (08/26/2016 10:36:Mirna Madrid RN) Med Hx MARINE CONSULTANT Surgery: No (08/26/2016 10:36:Mirna Madrid RN) Med Hx Hospitalization/Surgery: Yes (08/26/2016 10:36:Milagros Lynch RN) Med Hx Anesthetic Complications: No (08/26/2016 10:36:Mirna Madrid RN) Med Hx Abnormal Pap Smear: No (08/26/2016 10:36:Mirna Madrid RN) Other Medical Diseases: No (08/26/2016 10:36:Mirna Madrid RN) Med Hx Significant Family Hx: No (08/26/2016 10:36:Mirna Madrid RN) Details of Med/Surg Hx: Preeclampsia during first (08/26/2016 10:36:Milagros Lynch RN) INFECTIOUS HISTORY Inf Hx Gonorrhea: No (08/26/2016 10:36:Mirna Madrid RN) Inf Hx Chlamydia: No (08/26/2016 10:36:Mirna Madrid RN) Inf Hx Syphilis: No (08/26/2016 10:36:Mirna Madrid RN) Inf Hx HIV/AIDS: No (08/26/2016 10:36:Mirna Madrid RN) Inf Hx Human Papilloma Virus: No (08/26/2016 10:36:Mirna Madrid RN) Inf Hx Pt/Partner Genital Herpes: No (08/26/2016 10:36:Mirna Madrid RN) Inf Hx Tuberculosis/Exposure: No (08/26/2016 10:36:Mirna Madrid RN) Inf Hx Hepatitis B,C: No (08/26/2016 10:36:Mirna Madrid RN) Inf Hx Rash or Viral Illness: No (08/26/2016 10:36:Mirna Madrid RN) GENETIC HISTORY Gen Hx Age >=35 at ANNABELLE: No (08/26/2016 10:36:Mirna Madrid RN) Gen Hx Thalassemia: No (08/26/2016 10:36:Mirna Madrid RN) Gen Hx Congenital Heart Defect: No (08/26/2016 10:36:Mirna Madrid RN) Gen Hx Neural Tube Defect: No (08/26/2016 10:36:Mirna Madrid RN) Gen Hx Down's Syndrome: No (08/26/2016 10:36:Mirna Madrid RN) Gen Hx Wild-Sachs: No (08/26/2016 10:36:Mirna Madrid RN) Gen Hx Josel : No (08/26/2016 10:36:Mirna Madrid RN) Gen Hx Familial Dysautonomia: No (08/26/2016 10:36:Mirna Madrid RN) Gen Hx Sickle Cell Disease/Trait: No (08/26/2016 10:36:Mirna Madrid RN) Gen Hx Hemophilia/Blood Disorder: No (08/26/2016 10:36:Mirna Madrid RN) Gen Hx Muscular Dystrophy: No (08/26/2016 10:36:Mirna Madrid RN) Gen Hx Cystic Fibrosis: No (08/26/2016 10:36:Mirna Madrid RN) Gen Hx [place] Chorea: No (08/26/2016 10:36:Mirna Madrid RN) Gen Hx Mental Retardation/Autism: No (08/26/2016 10:36:Mirna Madrid RN) Gen Hx Tested for Fragile X: No (08/26/2016 10:36:Mirna Madrid RN) Gen Hx Other Inher/Chromosomal: No (08/26/2016 10:36:Mirna Madrid RN) Gen Hx Maternal Metabolic DO: No (08/26/2016 10:36:Mirna Madrid RN) Gen Hx Pt Father or FOB Defect: No (08/26/2016 10:36:Mirna Madrid RN) Gen Hx Other Genetic History: No (08/26/2016 10:36:Mirna Madrid RN) Gen Hx Drugs/Meds since LMP: No (08/26/2016 10:36:Mirna Madrid RN)
--- NOTE | 2016-09-21 10:48 | L&D Current Admission ---
Current Admit Datetime Report Generated by CPN: 09/21/2016 10:45 ADMISSION INFORMATION Current Admit Date/Time: 09/16/2016 10:36 (08/26/2016 10:59:Milagros Lynch RN) Reason for Admission: Labor Check/Investigation of Chief Complaint (08/26/2016 10:59:Milagros Lynch RN) Chief Complaint: Contractions (09/16/2016 11:05:Milagros Lynch RN) Chief Complaint: Contractions (08/26/2016 10:59:Milagros Lynch RN) Medications During : Vitamin (08/26/2016 10:59:Milagros Lynch RN) EGA per Dates: 36.3 (08/26/2016 10:59:QS system process) Method of Arrival: Wheelchair (08/26/2016 10:59:Milagros Lynch RN) Admitted From: Home (08/26/2016 10:59:Milagros Lynch RN) Records Available: Yes (08/26/2016 10:59:Milagros Lynch RN) General Admission Information: Reviewed (08/26/2016 10:59:Milagros Lynch RN) General Admission Reviewed By: Leandra Lynch (08/26/2016 10:59:Milagros Lynch RN) BELONGINGS/ADVANCED DIRECTIVES Valuables/Personal Effects: Purse/Wallet; Cell Phone (08/26/2016 10:59:Milagros Lynch RN) Disposition of Belongings: Kept with Patient (08/26/2016 10:59:Milagros Lynch RN) Advance Direct for Healthcare: No, but Requests Information (08/26/2016 10:59:Milagros Lynch RN) Durable Power of Subway Operator: No (08/26/2016 10:59:Milagros Lynch RN) Living Will: No (08/26/2016 10:59:Milagros Lynch RN) Organ Donor: No (08/26/2016 10:59:Milagros Lynch RN) Pt Rights Information Given: Yes (08/26/2016 10:59:Milagros Lynch RN) LEARNING ASSESSMENT Knowledge Level: Understands L_D Process (08/26/2016 10:59:Milagros Lynch RN) Barriers to Learning: None (08/26/2016 10:59:Milagros Lynch RN) Learning Readiness: Motivated (08/26/2016 10:59:Milagros Lynch RN) Learns Best By: 1 to 1 Instruction; Reading; Videos; Demonstration (08/26/2016 10:59:Milagros Lynch RN) Learning Needs: Labor and Delivery Process; Pain Management; Symptoms to Report; Medication (08/26/2016 10:59:Milagros Lynch RN) DOMESTIC VIOLANCE SCREENING Dom Viol Threatened/Hurt: No (08/26/2016 10:59:Milagros Lynch RN) Hx of Abuse/Neglect past 2yrs: No (08/26/2016 10:59:Milagros Lynch RN) Feel Unsafe Going Home: No (08/26/2016 10:59:Milagros Lynch RN) Addt'l Observ Indicating Abuse: No (08/26/2016 10:59:Milagros Lynch RN) Considered Personal Harm/Suicide: No (08/26/2016 10:59:Milagros Lynch RN) NUTRITIONAL/FUNCTIONAL SCREENING Problem with Appetite >5 Days: No (08/26/2016 10:59:Milagros Lynch RN) Chew/Swallow Difficulties: No (08/26/2016 10:59:Milagros Lynch RN) Inappropriate Wt Gain/Loss: No (08/26/2016 10:59:Milagros Lynch RN) Presence Skin Breakdown/Ulcer: No (08/26/2016 10:59:Milagros Lynch RN) Special Diet: No (08/26/2016 10:59:Milagros Lynch RN) Hx of Any of the Following?: N/A (08/26/2016 10:59:Milagros Lynch RN) New Diagnosis of: N/A (08/26/2016 10:59:Milagros Lynch RN) Requires Assist w/Ambulation: No (08/26/2016 10:59:Milagros Lynch RN) Uses Assist Device to Ambulate: No (08/26/2016 10:59:Milagros Lynch RN) Pt Requires Help w/ADL's: No (08/26/2016 10:59:Milagros Lynch RN)
--- NOTE | 2016-09-21 10:48 | L&D Discharge Summary ---
OB Discharge Summary Datetime Report Generated by CPN: 09/21/2016 10:45 DISCHARGE DIAGNOSIS Diagnosis/Symptoms: False Labor Gestation: 36.3 Number of Babies in Womb: 1 Parity: 2 DIET/ACTIVITY/RESTRICTIONS Diet: Regular Activity: Normal Activity TEACHING/INSTRUCTIONS/REFERRALS Instructions Given To: Patient Instructions Understood: Patient Verbalized Understanding Referrals: None Educational Materials- Other: Kick counts reviewed. Pt instructed to return for worsening pain, N/V, fever. DISCHARGE INFORMATION Discharged AMA: No Discharge Date/Time: 09/16/2016 13:40 Discharged To: Home Discharge Provider Name: Dr. Baum Accompanied By: Mother Discharge Method: Ambulatory Condition: Stable FOLLOW UP INFORMATION Follow Up With: [facility] Follow Up On: As Scheduled Follow Up Phone Number: [facility] -
== END 2016-09-16 13:40 | disposition home or self-care (01) ==
LOC: LC 10:30
PROVIDERS: ATTEND Student in an Organized Health Care Education/Training Program
PROC: 4A1HXCZ Monitoring of Products of Conception, Cardiac Rate, External Approach (ICD-10-PCS; principal; 2016-09-16)
DX: O47.03 False labor before 37 completed weeks of gestation, third trimester (principal); Z3A.36 36 weeks gestation of pregnancy
CPT/HCPCS: 36415; 59025; 80053; 80307; 81005; 82150; 83690; 85025

== ENCOUNTER 2016-10-16 09:30 | Outpatient (CLI) | payer MEDICAID ==
[2016-10-16 10:13] LABS: APPEARANCE,URINE SLIGHTLY-CLOUDY; BILIRUBIN,URINE NEGATIVE (NEGATIVE); GLUCOSE, URINE NEGATIVE (NEGATIVE); KETONES,URINE NEGATIVE (NEGATIVE); LEUKOCYTE ESTERASE,URINE MODERATE (NEGATIVE); NITRITE,URINE NEGATIVE (NEGATIVE); PROTEIN,URINE NEGATIVE (NEGATIVE); URINE SPECIFIC GRAVITY 1.012; UROBILINOGEN,URINE NEGATIVE mg/dL (<2.0)
[2016-10-16 10:16] LABS: AMNISURE (ROM) NEGATIVE (NEGATIVE)
[2016-10-16 10:33] LABS: URINE BARBITURATES SCREEN NEGATIVE; URINE METHADONE SCREEN NEGATIVE; URINE OPIATES LOW NEGATIVE; URINE PHENCYCLIDINE SCREEN NEGATIVE
--- NOTE | 2016-10-16 12:29 | Non Stress Test Report ---
Non Stress Test Datetime Report Generated by CPN: 10/16/2016 12:29 DEMOGRAPHIC EGA NST: 40.5 INDICATION Indication for Study: Other Indication for Study (NST) Other: LABOR CHECK- ?ESCOBAR MONITORING Monitor Explained: Monitor Explained; Test Explained; Patient Verbalized Understanding Time on Monitor: 10/16/2016 09:57 Time off Monitor: 10/16/2016 12:25 NST Duration: 148 NST INTERVENTIONS NST Interventions: PO Hydration; Reposition Patient Physician Notified NST: Yusef Woodard CNM BABY A: [id number] BABY A Movement : Present Contraction Frequency : IRREG FHR Baseline : 120 Accelerations : 15X15 Decelerations : None Variability : Moderate 6-25bpm NST Review: Meets Criteria for Reactive NST NST Review and Verified By : Alcon Meeks RN NST Results: Reactive NST REPORT Report Trigger: Send Report
== END 2016-10-16 12:32 | disposition home or self-care (01) ==
LOC: LC 09:30
PROVIDERS: ATTEND Obstetrics & Gynecology
DX: Z34.83 Encounter for supervision of other normal pregnancy, third trimester (principal); Z3A.40 40 weeks gestation of pregnancy
CPT/HCPCS: 59025; 80307; 81005; 84112

== ENCOUNTER 2016-10-19 21:56 | Inpatient (IN) | payer MEDICAID ==
[2016-10-19 22:37] LABS: APPEARANCE,URINE SLIGHTLY-CLOUDY; BILIRUBIN,URINE NEGATIVE (NEGATIVE); GLUCOSE, URINE NEGATIVE (NEGATIVE); KETONES,URINE NEGATIVE (NEGATIVE); LEUKOCYTE ESTERASE,URINE TRACE (NEGATIVE); NITRITE,URINE NEGATIVE (NEGATIVE); PROTEIN,URINE 30 mg/dL (NEGATIVE); UROBILINOGEN,URINE NEGATIVE mg/dL (<2.0)
[2016-10-19 22:38] LABS: ABSOLUTE BASOPHILS # (AUTO) 0.1 10^3/uL (0.0-0.2); ABSOLUTE EOSINOPHILS # (AUTO) 0.1 10^3/uL (0.0-0.6); ABSOLUTE MONOCYTES (AUTO) 0.7 10^3/uL (0.1-1.4); ABSOLUTE NEUT (AUTO) 8.6 10^3/uL (1.7-8.2); BASOPHILS % (AUTO) 0.5 % (0-2); EOSINOPHILS % (AUTO) 0.5 % (0-6); HEMOGLOBIN 11.4 g/dL (12.0-15.5); HGB HCT DIFFERENCE -0.8; LYMPHOCYTES % (AUTO) 24.4 % (13-45); MEAN CORPUSCULAR HEMOGLOBIN 25.4 pg (27.0-33.4); MEAN CORPUSCULAR HGB CONC 32.7 g/dL (32.0-36.0); MEAN CORPUSCULAR VOLUME 78 fl (80-97); MONOCYTES % (AUTO) 5.5 % (3-13); RED BLOOD COUNT 4.51 10^6/uL (3.72-5.28); RED CELL DISTRIBUTION WIDTH 14.8 % (11.5-14.0); SEGMENTED NEUTROPHILS % (AUTO) 69.1 % (42-78); WHITE BLOOD COUNT 12.5 10^3/uL (4.0-10.5)
[2016-10-19] MEDS ORDERED: RINGERS SOLUTION,LACTATED 1,000 ML IV PRN (22:40)
[2016-10-19 22:53] LABS: URINE BARBITURATES SCREEN NEGATIVE; URINE METHADONE SCREEN NEGATIVE; URINE OPIATES LOW NEGATIVE; URINE PHENCYCLIDINE SCREEN NEGATIVE
[2016-10-20] MEDS ORDERED: NALBUPHINE HCL INJ 10 MG/1 ML AMPULE IV ONE (03:16)
[2016-10-20] MEDS ORDERED: ONDANSETRON HCL 8 MG TABLET PO ONE (03:17)
[2016-10-20] MEDS ORDERED: NALBUPHINE HCL INJ 10 MG/1 ML AMPULE ONE (03:20)
[2016-10-20] MEDS ORDERED: ONDANSETRON HCL 8 MG TABLET ONE (03:20)
[2016-10-20] MEDS ORDERED: OXYTOCIN/NORMAL SALINE 20 UNIT/1,000 ML RTUINJ ONE (03:21)
[2016-10-20] MEDS ORDERED: MISOPROSTOL 0.2 MG TABLET ONE (03:21)
[2016-10-20] MEDS ORDERED: LIDOCAINE 1% INJ-PF (10 MG/ML) 30 ML SDV ONE (03:21)
[2016-10-20] MEDS ORDERED: BUPIVACAINE HCL 0.25 % INJ/PF (2.5 MG/1 ML) 30 ML VIAL ONE (03:56)
[2016-10-20] MEDS ORDERED: FENTANYL/BUPIVACAINE/NS/PF 0 MCG/0 ML RTUINJ EPI ONE (03:56)
[2016-10-20] MEDS ORDERED: EPHEDRINE SULFATE INJ 50 MG/1 ML AMPULE ONE (03:56)
[2016-10-20] MEDS ORDERED: OXYTOCIN/NORMAL SALINE 20 UNIT/1,000 ML RTUINJ IV PRN (04:36)
[2016-10-20] MEDS ORDERED: MEASLES,MUMPS&RUBELLA VACC/PF 0.5 ML VIAL SUBCUT PRN (04:36)
[2016-10-20] MEDS ORDERED: ACETAMINOPHEN WITH CODEINE #3 TABLET PO PRN ×2 (04:36)
[2016-10-20] MEDS ORDERED: ZOLPIDEM TARTRATE 5 MG TABLET PO PRN (04:36)
[2016-10-20] MEDS ORDERED: DIPH/PERTUSS(ACELL)/TETANUS VAC/PF 0.5 ML SYR (>=10YO) IM PRN (04:36)
[2016-10-20] MEDS ORDERED: BENZOCAINE/MENTHOL AEROSOL SPRAY 56 ML TOP PRN (04:36)
[2016-10-20] MEDS ORDERED: DIBUCAINE 1% OINTMENT 28 GM TP PRN (04:36)
[2016-10-20] MEDS ORDERED: IBUPROFEN 800 MG TABLET ONE (04:51)
--- NOTE | 2016-10-20 06:58 | Admission Physical ---
Datetime Report Generated by CPN: 10/20/2016 06:57 CURRENT ADMISSION Chief Complaint: Scheduled Induction of Labor Indication for Induction: Post Dates; Postterm Admit Plan: Admit to Unit; Initiate Labor Induction Protocol ALLERGIES Medication Allergies: No Medication Allergies: No Known Allergies (10/16/2016) Medication Allergies: No Known Allergies (03/07/2015) Latex: No Latex Allergies Food Allergies: none Environmental Allergies: none OBSTETRICAL HISTORY EDC: 10/11/2016 00:00 : 5 Para: 2 Term: 2 : 0 SAB: 0 IAB: 0 Ectopic: 0 Livin Cesareans: 0 VBACs: 0 Multiple Births: 0 Gestational Diabetes: No Rh Sensitization: No Incompetent Cervix: No MISHEL: No Infertility: No ART Treatment: No Uterine Anomaly: No IUGR: No Hx Previous C/S: No Macrosomia: No Hx Loss/Stillborn: No PIH: No Hx : No Placenta Previa/Abruption: No Depression/PP Depression: No PTL/PROM: No Post Hemorrhage: No Current Procedures: Ultrasound Obstetrical History Comments: G1- Preeclampsia. full term female. G3- Misscarriage at 9 weeks. G4- full term male G5- Current . SEE RECORDS Alcohol: No Marijuana : No Cocaine: No Other Illicit Drugs: No Cigarettes: Never Smoker. [id number] MEDICAL HISTORY Diabetes: No Blood Transfusion: No Pulmonary Disease (Asthma, TB): No Breast Disease: No Hypertension: No Counseling Program Leader Surgery: No Heart Disease: No Hosp/Surgery: Yes Autoimmune Disorder: No Anesthetic Complications: No Kidney Disease: No Abnormal Pap Smear: No Neuro/Epilepsy: No Psychiatric Disorders: No Other Medical Diseases: No Hepatitis/Liver Disease: No Significant Family History: No Varicosities/Phlebitis: No Trauma/Violence : No Thyroid Dysfunction: No Medical History Comments: Preeclampsia during first INFECTIOUS HISTORY Gonorrhea: No Genital Herpes: No Chlamydia: No Tuberculosis: No Syphilis: No Hepatitis: No HIV/AIDS Exposure: No Rash or Viral Illness: No HPV: No PHYSICAL EXAM General: Normal HEENT: Normal Neurologic: Normal Thyroid: Deferred Heart: Normal Lungs: Normal Breast: Deferred Back: Normal Abdomen: Normal Genitourinary Exam: Normal Extremities: Normal DTRs: Normal Pelvic Type: Adequate Vital Signs: Reviewed; Within Normal Limits VAGINAL EXAM Dilatation: 3 Effacement: 80 Station: -1 MEMBRANES Membranes: Intact FETUS A EGA: 41.2 Monitoring: External US FHR- Baseline: 140 Variability: Moderate 6-25bpm Accelerations: 15X15 Decelerations: None FHR Category: Category I PLANS FOR LABOR AND DELIVERY Labor and Delivery: None Pain Management: Natural Feeding Preference: Breast Benefit of Breast Feed Discussed: Yes Circumcision: N/A INFORMED CONSENT Signature: with User ID: Garcia
[2016-10-20] MEDS: FERROUS SULFATE 325 MG TABLET PO SCH ×2 (09:25→17:24)
[2016-10-20] MEDS: PRENATAL VITAMIN W-O CA NO5/FE FUMARATE/FA CAPSULE PO SCH (09:26)
[2016-10-20] MEDS: DOCUSATE SODIUM 100 MG CAPSULE PO SCH ×2 (09:26→17:24)
[2016-10-20] MEDS: SENNOSIDES/DOCUSATE 8.6-50 MG 1 EACH TABLET PO SCH (09:26)
[2016-10-20] MEDS: IBUPROFEN 800 MG TABLET PO SCH ×3 (09:34→21:05)
[2016-10-21] MEDS: IBUPROFEN 800 MG TABLET PO SCH ×3 (06:14→21:11)
[2016-10-21 06:43] LABS: HEMATOCRIT 33.3 % (36.0-47.0); HEMOGLOBIN 10.8 g/dL (12.0-15.5); HGB HCT DIFFERENCE -0.9; MEAN CORPUSCULAR HEMOGLOBIN 25.5 pg (27.0-33.4); MEAN CORPUSCULAR HGB CONC 32.5 g/dL (32.0-36.0); MEAN CORPUSCULAR VOLUME 79 fl (80-97); RED BLOOD COUNT 4.23 10^6/uL (3.72-5.28); RED CELL DISTRIBUTION WIDTH 14.9 % (11.5-14.0); WHITE BLOOD COUNT 11.3 10^3/uL (4.0-10.5)
[2016-10-21] MEDS: PRENATAL VITAMIN W-O CA NO5/FE FUMARATE/FA CAPSULE PO SCH (09:21)
[2016-10-21] MEDS: FERROUS SULFATE 325 MG TABLET PO SCH ×2 (09:21→17:31)
[2016-10-21] MEDS: DOCUSATE SODIUM 100 MG CAPSULE PO SCH ×2 (09:21→17:32)
[2016-10-21] MEDS: SENNOSIDES/DOCUSATE 8.6-50 MG 1 EACH TABLET PO SCH (09:22)
--- NOTE | 2016-10-21 09:38 | PDOC PROGRESS REPORT ---
Subjective-OB Subjective: Post Delivery Day: 1 27 year old. Denies any needs at this time, states pain is well controlled, voiding without difficulty, lochia is stable, tolerating diet, bonding well with baby. Physical Exam (OB) Vital Signs: Temp Pulse Resp BP Pulse Ox 98.3 F 73 18 134/66 H 97 10/20/16 20:11 10/20/16 20:11 10/20/16 20:11 10/20/16 20:11 10/20/16 20:11 Intake & Output 10/20/16 10/21/16 10/22/16 06:59 06:59 06:59 Intake Total 400 Balance 400 Weight 115.3 kg - Lochia Lochia Amount: Scant < 10 ml Lochia Color: Rubra/Red - Abdomen Description: Tender, Soft Hernia Present: No Fundal Description: Firm, Midline Fundal Height: u/u - u/2 Objective-Diagnostic Laboratory: 10/21/16 06:29 10/21/16 06:29 WBC 11.3 H RBC 4.23 Hgb 10.8 L Hct 33.3 L MCV 79 L MCH 25.5 L MCHC 32.5 RDW 14.9 H Plt Count 177 Assessment and Plan(PN) - Assessment and Plan (1) Vaginal delivery Is this a current diagnosis for this admission?: YesPlan: routine pp care - Time Spent with Patient Time with patient: Less than 15 minutes Critical Time spent with patient: Less than 15 minutes Medications reviewed and adjusted accordingly: Yes - Disposition Anticipated Discharge: Home Within: within 24 hours
[2016-10-22] MEDS: IBUPROFEN 800 MG TABLET PO SCH ×2 (05:57→13:07)
[2016-10-22] MEDS: FERROUS SULFATE 325 MG TABLET PO SCH (07:23)
[2016-10-22 08:43] VITALS: BP 130/70
[2016-10-22] MEDS: DOCUSATE SODIUM 100 MG CAPSULE PO SCH (09:04)
[2016-10-22] MEDS: SENNOSIDES/DOCUSATE 8.6-50 MG 1 EACH TABLET PO SCH (09:04)
[2016-10-22] MEDS: PRENATAL VITAMIN W-O CA NO5/FE FUMARATE/FA CAPSULE PO SCH (09:04)
--- NOTE | 2016-10-22 09:58 | PDOC DISCHARGE SUMMARY ---
Final Diagnosis Discharge Date: 10/22/16 - Final Diagnosis (1) Vaginal delivery Is this a current diagnosis for this admission?: Yes Discharge Data - Discharge Medication Home Medications: [id number]/Iron Fumarate/FA/Dss [ 19 Tablet] 1 each PO QPM 01/06/15 Docusate Sodium [Colace 100 mg Capsule] 100 mg PO BID #60 capsule 10/22/16 Ferrous Sulfate [Feosol 325 mg Tablet] 325 mg PO BIDBS #60 tablet 10/22/16 Ibuprofen [Motrin 800 mg Tablet] 800 mg PO Q8 #60 tablet 10/22/16 Gestational Age: 41 Reason(s) for Admission: Induction of Labor Procedures: NST Intrapartum Procedure(s): Spontaneous Vaginal Delivery - [place] Data Baby 1 Female Home with Mother: Yes Complications: No - Diagnosis Test Laboratory: Temp Pulse Resp BP Pulse Ox 98.4 F 72 18 123/66 99 10/22/16 08:14 10/22/16 08:14 10/22/16 08:14 10/22/16 08:14 10/22/16 08:14 10/19/16 10/19/16 10/21/16 22:08 22:24 06:29 RBC 4.51 4.23 Hgb 11.4 L 10.8 L Hct 35.0 L 33.3 L Urine Opiates Screen NEGATIVE - Discharge information/Instructions Discharge Activity: Activity As Tolerated, No Driving, No Lifting Over 10 Pounds , Pelvic Rest, No tub bath Discharge Diet: Regular Disposition: HOME, SELF-CARE Follow up with: [facility] in: 4, Weeks
--- NOTE | 2016-10-23 18:12 | Delivery Summary ---
Del Sum A-C Datetime Report Generated by CPN: 10/23/2016 18:12 DELIVERY PERSONNEL DELIVERY PERSONNEL: [phone];[id number] Delivery Doctor:: Lavelle Del Castillo DO Labor and Delivery Nurse:: Magdalena Whittaker RNranch hand livestock Nurse:: Mario Srivastava RN Nursery Nurse:: Bonifacio Morales RN Nursery Nurse:: Fortino Ge RN Slot Host/MARKETING ANALYTICS SPECIALIST: Steven Polo, MARKETING ANALYTICS SPECIALIST MATERNAL INFORMATION Delivery Anesthesia: None Medications After Delivery: Pitocin Drip 20 Units/1000ml NSS Meds After Delivery Comment: 20 units pitocin after placenta delivery Estimated Blood Loss (ml): 250 Maternal Complications: None Provider Comments: of viable female in KATERIN position Loose Nuchal cord x1, easily reduced Placenta delievered spontaneous and intact with 3v cord Fundus Firm LABOR SUMMARY EDC: 10/11/2016 00:00 No. Babies in Womb: 1 Attempted: No Labor Anesthesia: None LABOR INFORMATION Reason for Induction: Not Applicable Onset of Labor: 10/19/2016 22:13 Complete Dilatation: 10/20/2016 04:02 Oxytocin: N/A Group B Beta Strep: negative Antibiotics # of Doses: 0 Steroids Given: None Reason Steroids Not Administered: Not Applicable MEMBRANES Membranes Rupture Method: Spontaneous Rupture of Membranes: 10/20/2016 03:42 Length of Rupture (hr): 0.55 Amniotic Fluid Color: Clear Amniotic Fluid Amount: Scant Amniotic Fluid Odor: None STAGES OF LABOR Stage 1 hr: 5 Stage 1 min: 49 Stage 2 hr: 0 Stage 2 min: 13 Stage 3 hr: 0 Stage 3 min: 4 Total Time in Labor hr: 6 Total Time in Labor min: 6 VAGINAL DELIVERY Episiotomy: None Laceration Extension: N/A Laceration Type: None Laceration Repair: Not Applicable Sponge Count Correct: N/A Sharps Count Correct: N/A CSECTION DELIVERY Primary Indication: N/A Other Primary Indication: N/A Secondary Indication: N/A Other Secondary Indication: N/A CSection Urgency: N/A CSection Incidence: N/A Labor: N/A Elective: N/A CSection Incision: N/A BABY A INFORMATION Infant Delivery Date/Time: 10/20/2016 04:15 Method of Delivery: Vaginal Born in Route : No : N/A Forceps: N/A Vacuum Extraction: N/A Shoulder Dystocia : No PRESENTATION/POSITION BABY A Presentation: Cephalic Cephalic Presentation: Vertex Vertex Position: Right Occipital Anterior Breech Presentation: N/A PLACENTA INFORMATION BABY A Placenta Delivery Time : 10/20/2016 04:19 Placenta Method of Delivery: Spontaneous Placenta Status: Delivered SCORES BABY A Heart Rate 1 min: >100 bpm Resp Effort 1 min: Good Cry Reflex Irritability 1 min: Cough or Sneeze or Pulls Away Muscle Tone 1 min: Active Motion Color 1 min: Blue/Pale Resuscitation Effort 1 min: Tactile Stimulation SCORE 1 MIN: 8 Heart Rate 5 min: >100 bpm Resp Effort 5 min: Good Cry Reflex Irritability 5 min: Cough or Sneeze or Pulls Away Muscle Tone 5 min: Active Motion Color 5 min: Body [place], Extremities Blue Resuscitation Effort 5 min: Tactile Stimulation SCORE 5 MIN: 9 INFORMATION BABY A Gestational Age at Delivery: 41.2 Gestational Status: Late Term- 41- 41.6 Weeks Outcome : Liveborn Condition : Stable Sex: Female IDENTIFICATION BABY A Infant Verification Date/Time: 10/20/2016 04:23 ID Band Number: [id number] Mother's Name Verified: Yes RN Verifying : S. Lattibeaudeir, RN _ B. Drake, RN WEIGHT/LENGTH BABY A Birthweight (gm): 3310 Infant Weight (lb): 7 Weight (oz): 5 Infant Length (in): 20.00 Length (cm): 50.80 CORD INFORMATION BABY A No. Cord Vessels: 3 Nuchal Cord : Around Neck x1, Loose Cord Blood Taken: Yes-For Eval (Mom's Blood Type - or O+) Infant Suction: Mouth ASSESSMENT BABY A Infant Complications: Decreased Variability; Meconium Complications- Other: terminal mec Physical Findings at Delivery: Other Physical Findings- Other: see nursery notes Infant Respirations: Appears Normal Skin to Skin: Yes Skin to Skin Time (min): 60 Mortgage Clerk/ALS Called : No Care By: Fortino Ge RN Transferred To: Remains with Mother BABY B INFORMATION : N/A SIGNATURES Signature: with User ID: [email or web address]
== END 2016-10-22 14:40 | disposition home or self-care (01) | DRG 775 ==
LOC: LR 21:56 → 2S 10-20 06:41
PROVIDERS: ADMIT Obstetrics & Gynecology; ATTEND Obstetrics & Gynecology
PROC: 10E0XZZ Delivery of Products of Conception, External Approach (ICD-10-PCS; principal; 2016-10-20)
PROC: 4A1HXCZ Monitoring of Products of Conception, Cardiac Rate, External Approach (ICD-10-PCS; 2016-10-20)
DX: O48.0 Post-term pregnancy (principal); O77.0 Labor and delivery complicated by meconium in amniotic fluid; O69.81X0 Labor and delivery complicated by cord around neck, without compression, not applicable or unspecified; Z3A.41 41 weeks gestation of pregnancy; Z37.0 Single live birth
CPT/HCPCS: 36415; 80307; 81005; 85025; 85027; 86592; 86850; 86900; 86901; J2300; J2590; J3490; S0119

== ENCOUNTER 2019-06-13 07:19 | Day surgery (SDC) | payer BC, MEDICAID ==
[2019-06-09 12:44] LABS: HEMATOCRIT 36.6 % (36.0-47.0); HEMOGLOBIN 12.2 g/dL (12.0-15.5); MEAN CORPUSCULAR HEMOGLOBIN 25.9 pg (27.0-33.4); MEAN CORPUSCULAR HGB CONC 33.4 g/dL (32.0-36.0); MEAN CORPUSCULAR VOLUME 78 fl (80-97); PLATELET COUNT 220 10^3/uL (150-450); RED BLOOD COUNT 4.72 10^6/uL (3.72-5.28); RED CELL DISTRIBUTION WIDTH 13.5 % (11.5-14.0)
[2019-06-09 12:50] LABS: APPEARANCE,URINE CLEAR; BILIRUBIN,URINE NEGATIVE (NEGATIVE); COLOR,URINE YELLOW; GLUCOSE, URINE NEGATIVE (NEGATIVE); KETONES,URINE NEGATIVE (NEGATIVE); LEUKOCYTE ESTERASE,URINE TRACE (NEGATIVE); NITRITE,URINE NEGATIVE (NEGATIVE); PROTEIN,URINE NEGATIVE (NEGATIVE); URINE SPECIFIC GRAVITY 1.016; UROBILINOGEN,URINE NEGATIVE mg/dL (<2.0)
[2019-06-09 13:44] LABS: ANION GAP 12 (5-19); BLOOD UREA NITROGEN 11 mg/dL (7-20); CALCIUM 9.2 mg/dL (8.4-10.2); CARBON DIOXIDE 26 mmol/L (22-30); CHLORIDE 102 mmol/L (98-107); GLUCOSE 83 mg/dL (75-110); POTASSIUM 4.3 mmol/L (3.6-5.0)
[~2019-06-13 07:19] MED LIST: CEFAZOLIN 1 GM/D5W RTU 1 GM/50 ML RTUPB IV ONE; DEXAMETHASONE SOD PHOSPHATE INJ 4 MG/1 ML VIAL ONE; FENTANYL CITRATE INJ/PF 100 MCG/2 ML AMPUL ONE; LIDOCAINE 0.5% INJ-PF (5 MG/ML) 50 ML SDV ONE; MIDAZOLAM 2 MG/2 ML INJ ONE; ONDANSETRON HCL INJ/PF 4 MG/2 ML SDV ONE; PROPOFOL INJ 200 MG/20 ML VIAL IV ONE; ROCURONIUM BROMIDE INJ 50 MG/5 ML VIAL IV ONE; SUCCINYLCHOLINE CHLORIDE INJ 200 MG/10 ML VIAL ONE; SUGAMMADEX SODIUM 200 MG/2 ML SDV IV ONE
[2019-06-13] MEDS ORDERED: BUPIVACAINE HCL 0.25 % INJ/PF (2.5 MG/1 ML) 30 ML VIAL ONE (07:58)
[2019-06-13] MEDS ORDERED: DIPHENHYDRAMINE HCL 50 MG/ML VIAL IV PRN (08:00)
[2019-06-13] MEDS ORDERED: ONDANSETRON HCL INJ/PF 4 MG/2 ML SDV IV PRN (08:00)
[2019-06-13] MEDS ORDERED: PROMETHAZINE HCL INJ 25 MG/1 ML VIAL IV PRN ×2 (08:00)
[2019-06-13] MEDS ORDERED: MEPERIDINE HCL/PF INJ 25 MG/1 ML DISP.SYRIN IV PRN (08:00)
[2019-06-13] MEDS ORDERED: FENTANYL CITRATE INJ/PF 100 MCG/2 ML AMPUL IV PRN ×3 (08:00)
[2019-06-13] MEDS ORDERED: MORPHINE SULFATE 10 MG/ML INJ IV PRN (08:00)
--- NOTE | 2019-06-13 09:06 | Operative Report ---
Operative Report DATE OF SURGERY: 06/13/19 PREOPERATIVE DIAGNOSIS: Desires sterilization sterilization POSTOPERATIVE DIAGNOSIS: Same OPERATION: Laparoscopic Filshie clip sterilization SURGEON: SAM CUTLER ANESTHESIA: GA TISSUE REMOVED OR ALTERED: None COMPLICATIONS: None ESTIMATED BLOOD LOSS: 5 mL's INTRAOPERATIVE FINDINGS: Normal uterus tubes ovaries upper abdomen appendix PROCEDURE: Indication for procedure: The patient desired permanent sterilization she is aware of other methods of control including vasectomy and long-acting progesterone devices. She understands risk of bleeding infection anesthesia damage to other organs and tissues, there is she knows there is a risk of proxy 1 and 150/10 years for the sterilization procedure for . Procedure the patient taken taken the operating room and placed in modified lithotomy position after adequate anesthesia raster ascertained surgical timeout performed the and infraumbilical incision was made through through the umbilicus extending subcutaneous fat and fascia and the peritoneum was entered without difficulty. The bladder was drained prior to this aspect of the procedure and Exam under anesthesia was performed at that time. Through the incision site origin open cannula was placed and gas was instilled in the balloon and secured. Gas was instilled in the abdomen and under direct direct visualization through the camera system a second incision was made 3 fingerbreadths above the symphysis pubis and a 5 mm port was placed in this location. The of noted findings were appreciated the Filshie clips were placed one on each side across the antimesenteric border of the tube extending of the entire width of each tube at this time. A total of 2 clips were placed, one on each tube. Gas was then removed the fascial site on the umbilicus was closed with a 0 Vicryl stitch in a subcuticular stitch of 3-0 plain gut was placed with glue on the incision sites thereafter. The [place] tenaculum was removed at that point from the cervix and bleeding was nil
[2019-06-13] MEDS ORDERED: KETOROLAC TROMETHAMINE INJ/PF 30 MG/1 ML SDV ONE (09:25)
[2019-06-13] MEDS ORDERED: ACETAMINOPHEN 1,000 MG/100 ML RTUPB IV ONE (09:25)
[2019-06-13] MEDS ORDERED: OXYCODONE-ACETAMINOPHEN 5-325 MG TABLET PO PRN (09:33)
[2019-06-13] MEDS ORDERED: FENTANYL CITRATE INJ/PF 100 MCG/2 ML AMPUL ONE (09:36)
[2019-06-13] MEDS ORDERED: MORPHINE SULFATE 10 MG/ML INJ INJ PRN ×2 (09:36)
[2019-06-13] MEDS ORDERED: PROMETHAZINE HCL INJ 25 MG/1 ML VIAL IM PRN (09:37)
[2019-06-13] MEDS ORDERED: IBUPROFEN 800 MG TABLET PO SCH (10:00)
[2019-06-13] MEDS ORDERED: IBUPROFEN 800 MG TABLET ONE (10:38)
[2019-06-13 11:57] VITALS: BP 129/89
== END 2019-06-13 11:25 | disposition home or self-care (01) ==
LOC: OROUT 07:19
PROVIDERS: ATTEND Specialist
DX: Z30.2 Encounter for sterilization (principal)
CPT/HCPCS: 86900; 86901; 36415; 86850; 85027; 81025; 80048; 81001; 58671; J2250; J0690; J3490 ×3; J1100; J3010; J1885; J0330; J2405; J2704; J0131